=== PATIENT | male | born 1955 | race American Indian/Alaskan Native ===

== ENCOUNTER 2021-06-26 11:30 | Emergency (ER) | payer SELFPAY ==
[2021-06-26 11:56] VITALS: BP 120/58
[2021-06-26] MEDS ORDERED: TETANUS,DIPH,PERTUSS(ACELL) VACCINE 0.5 ML SYRINGE IM ONE (13:11)
--- NOTE | 2021-06-26 13:11 | Emergency Department Report ---
ED General Adult HPI - General Chief complaint: Laceration/Recheck/Suture Stated complaint: LEFT HAND SMALL LACERATION/YESTERDAY Time Seen by Provider: 06/26/21 11:35 Source: patient Mode of arrival: Ambulatory Limitations: No Limitations - History of Present Illness Initial comments: 65-year-old -N[place]alese male patient presents with complaints of left palm laceration last night. Patient states he cut it with a knife while cooking. He denies any difficulty moving the hand or redness. No pain at this time per patient. He is unsure of his last tetanus vaccination. - Related Data Previous Rx's Medication Instructions Recorded Last Taken Type Mupirocin [Bactroban 2% OINT] 1 applic TP TID 7 Days #1 tube 06/26/21 Unknown Rx ED Review of Systems ROS: Stated complaint: LEFT HAND SMALL LACERATION/YESTERDAY Other details as noted in HPI Constitutional: denies: chills, fever, malaise Musculoskeletal: denies: joint swelling, arthralgia Skin: denies: rash, lesions, change in color Neurological: denies: numbness, paresthesias ED Past Medical Hx - Past Medical History Previous Medical History?: No - Surgical History Past Surgical History?: No - Medications Home Medications: Home Medications Medication Instructions Recorded Confirmed Last Taken Type Mupirocin [Bactroban 2% OINT] 1 applic TP TID 7 Days #1 tube 06/26/21 Unknown Rx ED Physical Exam - General Limitations: No Limitations General appearance: alert, in no apparent distress - Head Head exam: Present: atraumatic, normocephalic - Eye Eye exam: Present: normal appearance. Absent: scleral icterus - Respiratory Respiratory exam: Absent: respiratory distress - Cardiovascular Cardiovascular Exam: Present: regular rate - Neurological Exam Neurological exam: Present: alert, oriented X3 - Psychiatric Psychiatric exam: Present: normal affect, normal mood - Skin Skin exam: Present: warm, dry, intact (1 cm laceration noted to left lateral palm with dried blood and scab noted on top; no dehiscence of the wound is noted or drainage or redness surrounding the hand; patient has full range of motion of the hand and fingers), normal color. Absent: rash ED Course Vital Signs 06/26/21 11:54 Temperature 97.7 F Pulse Rate 75 Respiratory 16 Rate Blood Pressure 120/58 [Left] O2 Sat by Pulse 98 Oximetry ED Medical Decision Making - Medical Decision Making 65-year-old -N[place]ales[place] male patient presents with complaints of left palm laceration last night. Patient states he cut it with a knife while cooking. He denies any difficulty moving the hand or redness. No pain at this time per patient. He is unsure of his last tetanus vaccination. No sutures required. We will send patient home with mupirocin to prevent infection. Discussed wound care and signs symptoms that should prompt immediate return to the emergency department in detail with patient who verbalizes understanding. Tetanus vaccine updated he is well-appearing and stable for discharge home Critical care attestation.: If time is entered above; I have spent that time in minutes in the direct care of this critically ill patient, excluding procedure time. ED Disposition Clinical Impression: Hand laceration Disposition: 01 HOME / SELF CARE / HOMELESS Is pt being admited?: No Condition: Stable Instructions: Nonsutured Laceration Care Prescriptions: Mupirocin [Bactroban 2% OINT] 1 applic TP TID 7 Days #1 tube Referrals: PRIMARY CARE, [Referring] - as needed [facility] [Provider Group] - as needed
== END 2021-06-26 13:40 | disposition home or self-care (01) ==
LOC: ED 11:30
DX: S61.412A Laceration without foreign body of left hand, initial encounter (principal); W26.0XXA Contact with knife, initial encounter; Y93.89 Activity, other specified; Y92.89 Other specified places as the place of occurrence of the external cause; Y99.8 Other external cause status
CPT/HCPCS: 99281